=== PATIENT | female | born 1995 | race Caucasian/White ===

== ENCOUNTER 2021-08-20 21:24 | Emergency (ER) | payer OTHER ==
[2021-08-20 21:33] VITALS: BP 110/69; PULSE 110; TEMP 98.2; BMI 41.3
[2021-08-20] MEDS ORDERED: DEXAMETHASONE 4 MG TABLET (FP) PO ONE (23:00)
[2021-08-20] MEDS ORDERED: DEXAMETHASONE SOD PHOSPHATE 10 MG/1 ML VIAL ONE (23:01)
[2021-08-20] MEDS ORDERED: DEXAMETHASONE 4 MG TABLET (FP) ONE (23:08)
[2021-08-22 13:07] LABS: SARS-CoV-2 NAA Not Detected (Not Detected)
== END 2021-08-20 23:20 | disposition home or self-care (01) ==
LOC: JER 21:24
DX: J06.9 Acute upper respiratory infection, unspecified (principal); R05.1 Acute cough; R09.81 Nasal congestion
CPT/HCPCS: 71046-TC-FY; 87804; 99283-25; C9803-CS; U0003; U0005